=== PATIENT | male | born 1970 | race Caucasian/White ===

== ENCOUNTER 2017-03-21 08:18 | Emergency (ER) | payer MEDICAID ==
[~2017-03-21] VITALS: Ht 177.8 cm; Wt 90.7 kg
[2017-03-21] MEDS ORDERED: NKM (08:19)
[2017-03-21] MEDS ORDERED: Morphine Sulfate 2mg/ml Inj IVP ONE (08:30)
[2017-03-21] MEDS ORDERED: Ketorolac 30mg Inj IV ONE (08:30)
--- NOTE | 2017-03-21 08:46 | Emergency Room Report ---
History of Present Illness General Chief Complaint: Syncope Source: Patient Present Illness HPI Patient presents with syncope. He's been having back pain which is new for him for the last couple of days. He's been helping a friend move a. He's been sleeping on the floor. His back pain is severe at 10/10 - aching and muscle spasms. Does not radiate down his legs but across his lower abdomen. He's been taking ibuprofen. Denies any fevers, chills, nausea, vomiting, dysuria or hematuria or saddle numbness. There's no incontinence. Laying down, his pain is 5/10. The syncopal episode occurred when his friend tried to help him get out of bed. He was having back pain at that time. Denies any nausea. The friend states that he passed out for approximately 10 seconds. He denies any chest pain, palpitations at that time. There is no trauma and there is no seizure activity. He felt that he was getting dizzy before this happened. He's passed out before but never had evaluation. This patient was brought by EMS. No treatment was undertaken in the field. He denies any medical problems aside from reflux. Allergies: Coded Allergies: No Known Allergies (Unverified , 03/21/17) Patient History Past Medical History: see triage record Social History: Denies: smoking Social History Narrative administration Reviewed Nursing Documentation: PMH: Agreed, PSxH: Agreed Nursing Documentation-PM Past Medical History: No Stated History Review of Systems All Other Systems: negative except mentioned in HPI Physical Exam Vital Signs Date Time Temp Pulse Resp B/P Pulse Ox O2 Delivery O2 Flow Rate FiO2 03/21/17 08:14 98.1 82 16 142/101 98 Room Air Sp02 EP Interpretation: reviewed, normal General Appearance: well appearing, no apparent distress, GCS 15 Head: normocephalic Eyes: bilateral eye PERRL, bilateral eye normal inspection ENT: moist mucus membranes Neck: supple Respiratory: lungs clear, normal breath sounds Cardiovascular #1: regular rate, rhythm Cardiovascular #2: 2+ radial (R) Gastrointestinal: normal inspection, normal bowel sounds, non tender, no mass, non-distended Musculoskeletal: digits/nails normal, normal range of motion, other - muscle spasms lower back Neurologic: alert, oriented x3, rail express clerk III-XII nml as tested, motor strength/tone normal, DTRs symmetric, sensory intact, cerebellar normal, normal gait, speech normal Psychiatric: mood/affect normal Skin: normal inspection, warm/dry Medical Decision Making Diagnostic Impression: Primary Impression: Lumbar strain Qualified Codes: S39.012A - Strain of muscle, fascia and tendon of lower back , initial encounter Additional Impression: Syncope Qualified Codes: R55 - Syncope and collapse ER Course Patient presents with syncope and also back pain. Differential includes vasovagal, orthostatic him arrhythmia amongst others. Also the back pain is new and sounds more like muscle strain. Evaluation will be with EKG, cardiac monitoring and labs. In addition the patient received IV hydration and analgesia. We will obtain lumbar films also. Labs unremarkable. EKG without injury and NSR on monitor. Friend requested CT lumbar. Patient not improved initially with analgesia. CT unremarkable without evidence of acute pathology. Fusion of transverse process and transitional vertebrae. Ativan ordered and finally, some relief. Patient now able to ambulate. Patient stable for outpatient observation and treatment. Labs Test 03/21/17 08:30 03/21/17 10:49 White Blood Count 7.4 K/UL (4.8-10.8) Red Blood Count 5.56 M/UL (4.70-6.10) Hemoglobin 17.3 G/DL (14.2-18.0) Hematocrit 50.8 % (42.0-52.0) Mean Corpuscular Volume 91 FL (80-99) Mean Corpuscular Hemoglobin 31.1 PG (27.0-31.0) Mean Corpuscular Hemoglobin Concent 34.0 G/DL (32.0-36.0) Red Cell Distribution Width 11.1 % (11.6-14.8) Platelet Count 199 K/UL (150-450) Mean Platelet Volume 7.4 FL (6.5-10.1) Neutrophils (%) (Auto) 66.0 % (45.0-75.0) Lymphocytes (%) (Auto) 23.7 % (20.0-45.0) Monocytes (%) (Auto) 7.9 % (1.0-10.0) Eosinophils (%) (Auto) 1.6 % (0.0-3.0) Basophils (%) (Auto) 0.8 % (0.0-2.0) Prothrombin Time 10.0 SEC (9.30-11.50) Prothromb Time International Ratio 1.0 (0.9-1.1) Activated Partial Thromboplast Time 26 SEC (23-33) Sodium Level 142 mEQ/L (135-145) Potassium Level 3.9 mEQ/L (3.4-4.9) Chloride Level 102 mEQ/L (98-107) Carbon Dioxide Level 23 mEQ/L (20-30) Anion Gap 17 (5-15) Blood Urea Nitrogen 17 mg/dL (7-23) Creatinine 1.1 mg/dL (0.7-1.2) Estimat Glomerular Filtration Rate > 60 mL/min (>60) Glucose Level 108 mg/dL (74-106) Calcium Level 9.7 mg/dL (8.6-10.2) Total Bilirubin 0.9 mg/dL (0.0-1.2) Aspartate Amino Transf (AST/SGOT) 35 U/L (5-40) Alanine Aminotransferase (ALT/SGPT) 43 U/L (3-41) Alkaline Phosphatase 87 U/L (40-129) Total Creatine Kinase 269 U/L (38-174) Troponin I < 0.30 ng/mL (<=0.30) Total Protein 7.8 g/dL (6.6-8.7) Albumin 4.7 g/dL (3.5-5.2) Globulin 3.1 g/dL Albumin/Globulin Ratio 1.5 (1.0-2.7) Urine Color Pale yellow Urine Appearance Clear Urine pH 6 (4.5-8.0) Urine Specific [place] 1.020 (1.005-1.035) Urine Protein Negative (NEGATIVE) Urine Glucose (UA) Negative (NEGATIVE) Urine Ketones 1+ (NEGATIVE) Urine Occult Blood Negative (NEGATIVE) Urine Nitrite Negative (NEGATIVE) Urine Bilirubin Negative (NEGATIVE) Urine Urobilinogen Normal MG/DL (0.0-1.0) Urine Leukocyte Esterase Negative (NEGATIVE) Urine Opiates Screen Negative (NEGATIVE) Urine Barbiturates Screen Negative (NEGATIVE) Phencyclidine (PCP) Screen Negative (NEGATIVE) Urine Amphetamines Screen Negative (NEGATIVE) Urine Benzodiazepines Screen Negative (NEGATIVE) Urine Cocaine Screen Negative (NEGATIVE) Urine Marijuana (THC) Screen Negative (NEGATIVE) EKG Diagnostic Results Rate: normal Rhythm: NSR ST Segments: no acute changes Rhythm Strip Diag. Results EP Interpretation: yes Rhythm: NSR, no PVC's, no ectopy, other - Sinus arrhythmia Chest X-Ray Diagnostic Results Chest X-Ray Ordered: Yes # of Views/Limited/Complete: 1 View EP Interpretation: Yes Interpretation: no consolidation, no effusion, no pneumothorax, no acute cardiopulmonary disease Indication: Other - syncope Impression: No acute disease Interpreting ER Provider: argelia CT/MRI/US Diagnostic Results CT/MRI/US Diagnostic Results : Imaging Test Ordered: ls spine Impression Impression: Essentially unremarkable exam. No acute bony trauma or other acute or significant abnormality. Note segmentation anomaly, as described. 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 03/21/17 Ibuprofen* (MOTRIN*) 600 Mg Tablet 600 MG ORAL Q6H Y for For Pain, #20 TAB Prov: Daljit Price M.D. 03/21/17 Tramadol Hcl* (ULTRAM*) 50 Mg Tablet 50 MG ORAL Q6H Y for For Pain, #14 TAB 0 Refills Prov: Daljit Price M.D. 03/21/17 Daljit Price M.D. Mar 21, 2017 08:46
[2017-03-21 09:00] VITALS: BP 132/83
[2017-03-21] MEDS ORDERED: fentaNYL 100 mcg/2 mL IV ONE (09:15)
[2017-03-21 09:34] LABS: BASOPHILS % (AUTO) 0.8 % (0.0-2.0); EOSINOPHILS % (AUTO) 1.6 % (0.0-3.0); LYMPHOCYTES % (AUTO) 23.7 % (20.0-45.0); MEAN CORPUSCULAR HEMOGLOBIN 31.1 PG (27.0-31.0); MEAN CORPUSCULAR VOLUME 91 FL (80-99); MEAN PLATELET VOLUME 7.4 FL (6.5-10.1); MONOCYTES % (AUTO) 7.9 % (1.0-10.0); PLATELET COUNT 199 K/UL (150-450); RED BLOOD COUNT 5.56 M/UL (4.70-6.10); RED CELL DISTRIBUTION WIDTH 11.1 % (11.6-14.8); WHITE BLOOD COUNT 7.4 K/UL (4.8-10.8)
[2017-03-21 09:42] LABS: TROPONIN I < 0.30 ng/mL (<=0.30)
[2017-03-21 09:43] LABS: ALANINE AMINOTRANSFERASE 43 U/L (3-41); ALBUMIN/GLOBULIN RATIO 1.5 (1.0-2.7); ANION GAP 17 (5-15); ASPARTATE AMINO TRANSFERASE 35 U/L (5-40); CALCIUM 9.7 mg/dL (8.6-10.2); CARBON DIOXIDE 23 mEQ/L (20-30); CHLORIDE 102 mEQ/L (98-107); CREATININE 1.1 mg/dL (0.7-1.2); GLOMERULAR FILTRATION RATE > 60 mL/min (>60); HEMOLYSIS 10; POTASSIUM 3.9 mEQ/L (3.4-4.9); SODIUM 142 mEQ/L (135-145); TOTAL PROTEIN 7.8 g/dL (6.6-8.7)
[2017-03-21] MEDS ORDERED: LORazepam Inj 2mg/ml 1ml IV ONE (09:45)
[2017-03-21 10:57] LABS: APPEARANCE,URINE CLEAR; KETONES,URINE 1+ (NEGATIVE); LEUKOCYTE ESTERASE ,URINE NEGATIVE (NEGATIVE); NITRITE,URINE NEGATIVE (NEGATIVE); PH,URINE 6 (4.5-8.0); PROTEIN,URINE NEGATIVE (NEGATIVE); UROBILINOGEN,URINE NORMAL MG/DL (0.0-1.0)
--- NOTE | 2017-03-21 11:05 | Diagnostic Imaging Report ---
Indication: Chest pain Technique: One view of the chest Comparison: none Findings: Lungs and pleural spaces are clear. Heart size is normal. Impression: No acute process
--- NOTE | 2017-03-21 11:05 | Diagnostic Imaging Report ---
Indications: Back pain, new over the last couple of days, severe 10/10 there is across mid abdomen Technique: Spiral acquisitions obtained through the lumbar spine. Multiplanar reconstructions were generated. No IV contrast utilized. Total dose length product 399 mGycm. CTDIvol(s) 13 mGy. Dose reduction achieved using automated exposure control Comparison: None Findings: There is transitional lumbosacral anatomy. There is a transitional lumbosacral segment, above which are 5 [id number] lumbar type vertebral bodies. The first lumbar type vertebral body demonstrates a fusion anomaly of the left transverse process. No acute fractures. Bony alignment is normal. Vertebral body heights are preserved. Disc spaces are preserved. No significant disc bulge or protrusion, spinal stenosis, or neural foraminal stenosis demonstrated. The included extraspinal soft tissues are remarkable for distention of the bladder. Impression: Essentially unremarkable exam. No acute bony trauma or other acute or significant abnormality. Note segmentation anomaly, as described. 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
[2017-03-21 11:30] VITALS: BP 133/82
[2017-03-21] MEDS ORDERED: IBUPROFEN600 MG ORAL (11:45)
[2017-03-21] MEDS ORDERED: ROBAXIN500 MG PO (11:45)
[2017-03-21] MEDS ORDERED: TRAMADOL HCL50 MG ORAL (11:45)
[2017-03-21 11:50] VITALS: BP 133/82
== END 2017-03-21 11:50 | disposition home or self-care (01) ==
LOC: EDBD 08:18 → EMR 08:30
DX: R55 Syncope and collapse (principal); S39.012A Strain of muscle, fascia and tendon of lower back, initial encounter; X50.9XXA Other and unspecified overexertion or strenuous movements or postures, initial encounter; Y92.9 Unspecified place or not applicable
CPT/HCPCS: 36415; 71010; 72131; 80053; 80300; 81003; 82550; 84484; 85025; 85610; 85730; 93005; 96374; 96375; 99284; J1885; J2270; J2405; J3010